=== PATIENT | male | born 1960 | race Caucasian/White ===

== ENCOUNTER 2018-03-28 14:34 | Emergency (ER) | payer OTHER ==
[~2018-03-28] VITALS: Ht 182.9 cm; Wt 81.6 kg
[~2018-03-28 14:34] MED LIST: ASPIR 8181 MG; NORVASC5 MG; TOPROL XL25 MG
[2018-03-28] MEDS ORDERED: [UNRECOGNIZED DRUG - OTHER] (15:25)
== END 2018-03-28 17:14 | disposition home or self-care (01) ==
LOC: ER 14:34
DX: S61.011A Laceration without foreign body of right thumb without damage to nail, initial encounter (principal); W26.0XXA Contact with knife, initial encounter; Y93.89 Activity, other specified; Y92.098 Other place in other non-institutional residence as the place of occurrence of the external cause; Y99.8 Other external cause status

== ENCOUNTER 2020-02-09 07:43 | Outpatient (CLI) | payer OTHER ==
[~2020-02-09 07:43] MED LIST changes: +[UNRECOGNIZED DRUG - OTHER]
== END 2020-02-09 07:53 | disposition home or self-care (01) ==
LOC: RAD 07:43
PROVIDERS: ATTEND Specialist
DX: K75.81 Nonalcoholic steatohepatitis (NASH) (principal); J45.998 Other asthma

== ENCOUNTER 2021-09-22 00:24 | Inpatient (IN) | payer OTHER ==
[~2021-09-22] VITALS: Ht 182.9 cm; Wt 83.9 kg
[2021-09-23] MEDS ORDERED: ULTRAM50 MG PO (11:07)
[2021-09-23] MEDS ORDERED: AMOX-CLAV 875-1 EACH PO (11:08)
== END 2021-09-23 12:03 | disposition home or self-care (01) | DRG 343 ==
LOC: ER 00:24 → SEC-K 10:29 → O/R 10:29 → SURG 14:15
PROVIDERS: ADMIT Surgery; ATTEND Surgery
PROC: BW21ZZZ Computerized Tomography (CT Scan) of Abdomen and Pelvis (ICD-10-PCS; 2021-09-22)
PROC: 0DTJ4ZZ Resection of Appendix, Percutaneous Endoscopic Approach (ICD-10-PCS; principal; 2021-09-22 10:00)
DX: K35.890 Other acute appendicitis without perforation or gangrene (principal); Z20.822 Contact with and (suspected) exposure to COVID-19

== ENCOUNTER 2024-01-11 09:37 | Emergency (ER) | payer OTHER ==
[~2024-01-11] VITALS: Ht 185.4 cm; Wt 77.1 kg
[~2024-01-11 09:37] MED LIST changes: +AMOX-CLAV 875-1 EACH PO; +ULTRAM50 MG PO
[2024-01-11] MEDS ORDERED: BYSTOLIC5 MG PO (09:51)
[2024-01-11] MEDS ORDERED: TRICOR48 MG PO (09:52)
[2024-01-11] MEDS ORDERED: CRESTOR5 MG PO (09:52)
[2024-01-11 10:28] LABS: HEMATOCRIT 47.4 % (39.0-48.0); MEAN CELL VOLUME 85.8 fL (80.0-100.00); MEAN CORPUSCULAR HGB CONC 33.8 g/dl (32.0-36.0); PLATELET COUNT 321 K/uL (150-450); RED BLOOD COUNT 5.53 M/uL (4.00-6.00)
[2024-01-11 11:00] LABS: CALCIUM 9.4 mg/dL (8.5-10.1); CREATININE SERUM 0.76 mg/dL (0.70-1.30); GFR 103.26; POTASSIUM 4.08 mEq/L (3.5-5.1)
[2024-01-11] MEDS ORDERED: DEXAMETHASONE SODIUM PHOSPHATE 4 MG/ML VIAL IM ONE (11:45)
== END 2024-01-11 11:57 | disposition home or self-care (01) ==
LOC: ER 09:38
PROVIDERS: General Practice
DX: B34.9 Viral infection, unspecified (principal); Z20.822 Contact with and (suspected) exposure to COVID-19; R07.89 Other chest pain

== ENCOUNTER 2024-03-06 14:05 | Emergency (ER) | payer OTHER ==
[~2024-03-06] VITALS: Ht 182.9 cm; Wt 80.7 kg
[~2024-03-06 14:05] MED LIST changes: +BYSTOLIC5 MG PO; +CRESTOR5 MG PO; +TRICOR48 MG PO
[2024-03-06] MEDS ORDERED: ORPHENADRINE CITRATE 30 MG/ML AMPUL IM STA (15:07)
[2024-03-06] MEDS ORDERED: DEXAMETHASONE SODIUM PHOSPHATE 4 MG/ML VIAL IM STA (15:07)
[2024-03-06] MEDS ORDERED: DEXAMETHASONE SODIUM PHOSPHATE 4 MG/ML VIAL ONE (15:14)
[2024-03-06] MEDS ORDERED: ORPHENADRINE CITRATE 30 MG/ML AMPUL ONE (15:14)
[2024-03-06 15:34] LABS: HEMATOCRIT 46.4 % (39.0-48.0); HEMOGLOBIN 15.2 g/dL (13-16.00); MEAN CORPUSCULAR HEMOGLOBIN 28.5 pg (27.00-32.0); MEAN CORPUSCULAR HGB CONC 32.7 g/dl (32.0-36.0); PLATELET COUNT 285 K/uL (150-450); RED BLOOD COUNT 5.33 M/uL (4.00-6.00); RED CELL DISTRIBUTION WIDTH 14.2 % (11.5-14.5)
[2024-03-06 16:20] LABS: URINE APPEARANCE Clear; URINE BILIRRUBIN Negative (NEGATIVE); URINE BLOOD Negative; URINE COLOR Yellow; URINE GLUCOSE Negative (NEGATIVE); URINE KETONE Negative (NEGATIVE); URINE LEUKOCYTE Negative; URINE NITRATE Negative; URINE PROTEIN Negative (NEGATIVE); URINE UROBILINOGEN 0.2 E.U./dl
[2024-03-06 16:24] LABS: URINE RBC 11.9 uL (0.0-20.8)
[2024-03-06] MEDS ORDERED: CARISOPRODOL350 MG PO (17:36)
== END 2024-03-06 18:14 | disposition home or self-care (01) ==
LOC: ER 14:05
DX: R10.9 Unspecified abdominal pain (principal)

== ENCOUNTER 2024-03-08 13:37 | Inpatient (IN) | payer OTHER ==
[~2024-03-08] VITALS: Ht 182.9 cm; Wt 89.8 kg
[~2024-03-08 13:37] MED LIST changes: +CARISOPRODOL350 MG PO
--- NOTE | 2024-03-08 14:06 | NUR ---
PACIENTE ALERTA Y ORIENTADO X 3. REFIERE DOLOR EN AREA DE TESTICULOS, ESPALDA BAJA LADO DERECHO E TERRA LADO DERECHO. PACIENTE CON REFERIDO DE DR Isreal LOVING PARA DR LOGAN POR POSIBLE HERNIA INGINAL.
[2024-03-08] MEDS ORDERED: KETOROLAC TROMETHAMINE 30 MG VIAL ONE (14:22)
--- NOTE | 2024-03-08 14:27 | NUR ---
PTE ALERTA Y ORIENTADO X3. RN HESS EDUCA A PTE SOBRE TX MEDICO, EL MISMO REFIERE ENTENDER. SE DEZ MUESTRAS DE LAB BAJO MEIDAS ASEPTICAS Y SE ADMINISTRAN MEDICAMENTOS NARAYAN ORDEN MEDICA. SE NOTIFICA CT PENDIENTE Y SE HACE ENTREGA DE ENVASE PARA U/A PENDIENTE.
[2024-03-08] MEDS ORDERED: PIPERACILLIN/TAZOBACTAM SODIUM 3.375 GM VIAL IV SCH ×2 (14:30→21:00)
[2024-03-08] MEDS ORDERED: KETOROLAC TROMETHAMINE 30 MG VIAL IV ONE (14:30)
[2024-03-08] MEDS ORDERED: 0.9 % SODIUM CHLORIDE 1,000 ML IV SCH ×2 (14:30→19:00)
[2024-03-08 14:48] LABS: HEMATOCRIT 45.4 % (39.0-48.0); HEMOGLOBIN 15.1 g/dL (13-16.00); MEAN CORPUSCULAR HGB CONC 33.4 g/dl (32.0-36.0); PLATELET COUNT 285 K/uL (150-450); RED BLOOD COUNT 5.22 M/uL (4.00-6.00)
[2024-03-08 15:05] LABS: CALCIUM 9.1 mg/dL (8.5-10.1); CREATININE SERUM 0.91 mg/dL (0.70-1.30); GFR 83.88; POTASSIUM 3.78 mEq/L (3.5-5.1)
[2024-03-08 15:07] LABS: URINE APPEARANCE Clear; URINE BILIRRUBIN Negative (NEGATIVE); URINE BLOOD Negative; URINE COLOR Yellow; URINE GLUCOSE Negative (NEGATIVE); URINE KETONE Negative (NEGATIVE); URINE LEUKOCYTE Negative; URINE NITRATE Negative; URINE PROTEIN Negative (NEGATIVE); URINE UROBILINOGEN 0.2 E.U./dl
[2024-03-08 15:10] LABS: URINE RBC 5.8 uL (0.0-20.8); URINE WBC 1.9 uL (0.0-23.2)
--- NOTE | 2024-03-08 15:26 | NUR ---
SE RECIBE PACIENTE ALERTA Y ORIENTADO X 3 ESFERAS EN CAMA CON BARANDAS ELEVADAS POR SEGURIDAD. PRESENTANDO BUEN PATRON RESPIRATORIO. RECIBIENDO IV'S 0.9NSS BAJANDO A 100ML/HR AREA DE VENOPUNCION RENETTA DE EDEMA Y ERITEMA. PENDIENTE CT A LAS 5PM. SE MANTIENE EN OBSERVACION POR CAMBIOS.
[2024-03-08 15:31] LABS: URINE BACTERIA 1.2 uL (0.0-1933); URINE EPITHELIAL CELLS 0.7 uL (0.0-38.8)
[2024-03-08 15:46] LABS: INR 1.1; PARTIAL THROMBOPLASTIN TIME 28.6 SECONDS (22.0-34.0); PROTHROMBIN TIME 11.9 SECONDS (9.0-11.5)
[2024-03-08] MEDS ORDERED: ENALAPRILAT DIHYDRATE 1.25 MG/ML VIAL IV PRN (19:00)
[2024-03-08] MEDS ORDERED: ACETAMINOPHEN 500 MG GEL..CAP PO PRN (19:00)
[2024-03-08] MEDS ORDERED: ONDANSETRON HCL 4 MG in 0.9 % SODIUM CHLORIDE 50 ML IV PRN (19:00)
[2024-03-08] MEDS ORDERED: MEPERIDINE HCL/PF 25 MG/ML VIAL IM PRN (19:15)
[2024-03-08 21:56] VITALS: BP 163/96; O2SAT 98
[2024-03-09] VITALS: BP 123/63; O2SAT 97
[2024-03-09] MEDS ORDERED: PIPERACILLIN/TAZOBACTAM SODIUM 3.375 GM in 0.9 % SODIUM CHLORIDE 100 ML IV SCH
[2024-03-09] MEDS ORDERED: PIPERACILLIN/TAZOBACTAM SODIUM 3.375 GM VIAL IV ONE ×3 (00:14→16:01)
[2024-03-09] MEDS ORDERED: FAMOTIDINE/PF 20 MG in 0.9 % SODIUM CHLORIDE 8 ML IV PUSH SCH (09:00)
[2024-03-09 09:20] VITALS: BP 132/85; O2SAT 99
[2024-03-09] MEDS ORDERED: BUPIVACAINE HCL/MPF 0.5% 30ML VIAL ONE (16:02)
[2024-03-09] MEDS ORDERED: CEFAZOLIN SODIUM 1,000 MG VIAL ONE (16:44)
[2024-03-09] MEDS ORDERED: GABAPENTIN 300 MG CAPSULE PO SCH (17:00)
[2024-03-09] MEDS ORDERED: POLYETHYLENE GLYCOL 3350 17 GM BLIST.PACK PO SCH (17:00)
[2024-03-09] MEDS ORDERED: MORPHINE SULFATE 4 MG/ML CARTRIDGE IV PRN (19:00)
[2024-03-09] MEDS ORDERED: SODIUM CHLORIDE 0.45 % 500 ML IV SCH (19:00)
[2024-03-09 20:18] VITALS: BP 160/80; O2SAT 98
[2024-03-10] VITALS: BP 141/76; O2SAT 96
[2024-03-10 08:46] VITALS: BP 145/82; O2SAT 96
== END 2024-03-10 11:20 | disposition home or self-care (01) | DRG 351 ==
LOC: ER 13:39 → SURH 19:56 → SURG 19:56 → SEC-K 20:01 → SURG 20:53
PROVIDERS: Emergency Medicine; Student in an Organized Health Care Education/Training Program; ADMIT Internal Medicine; ATTEND Internal Medicine
PROC: BW21YZZ Computerized Tomography (CT Scan) of Abdomen and Pelvis using Other Contrast (ICD-10-PCS; 2024-03-08)
PROC: 0YU507Z Supplement Right Inguinal Region with Autologous Tissue Substitute, Open Approach (ICD-10-PCS; principal; 2024-03-09 17:45)
DX: K40.30 Unilateral inguinal hernia, with obstruction, without gangrene, not specified as recurrent (principal); K56.609 Unspecified intestinal obstruction, unspecified as to partial versus complete obstruction; I10 Essential (primary) hypertension; E78.5 Hyperlipidemia, unspecified